=== PATIENT | female | born 1950 | race Caucasian/White ===

== ENCOUNTER 2021-10-27 11:03 | Emergency (ER) | payer MEDICARE, MEDICAID ==
[2021-10-27 11:44] LABS: #Basophils 0.1 thou/uL (0.0-0.2); #Eosinphils 0.1 thou/uL (0.0-0.7); #Lymphocytes 1.3 thou/uL (1.20-3.40); #Monocytes 0.4 thou/uL (0.11-0.59); #Neutrophils 5.1 thou/uL (1.40-6.50); %Basophils 0.8 % (0.0-1.0); %Neutrophils 73.2 % (42.0-75.0); Hemoglobin 13.3 g/dL (12.0-16.0); Mean Corpuscular HGB CONC 33.8 g/dL (32.0-36.0); Mean Corpuscular Hemoglobin 30.3 pg (27.0-31.0); Mean Corpuscular Volume 89.6 fL (78.0-98.0); Mean Platelet Volume 10.2 fL (7.4-10.4); Platelet Count 179 thou/uL (130-400); RBC Distribution Width 11.3 % (11.5-14.5); White Blood Cell (WBC) Count 6.9 thou/uL (4.8-10.8)
[2021-10-27 12:01] LABS: ALT (SGPT) 15 U/L (8-55); AST (SGOT) 20 U/L (5-34); Albumin 4.1 g/dL (3.4-4.8); Alkaline Phosphatase 62 U/L (40-110); Anion Gap 20 mmol/L (10-20); BUN (Urea Nitrogen) 13 mg/dL (9.8-20.1); Bilirubin, Total 0.8 mg/dL (0.2-1.2); Calc. Creatinine Clearance 0 mL/min (70-130); Calcium 9.9 mg/dL (7.8-10.44); Carbon Dioxide 26 mmol/L (23-31); Chloride 90 mmol/L (98-107); Glucose 120 mg/dL (83-110); Magnesium 1.5 mg/dL (1.6-2.6); Potassium 3.1 mmol/L (3.5-5.1); Protein, Total 7.1 g/dL (5.8-8.1); Sodium 133 mmol/L (136-145)
[2021-10-27] MEDS ORDERED: Potassium Chloride 20 MEQ TAB ONE (12:33)
[2021-10-27] MEDS ORDERED: Magnesium 2 GM/50 ML BAG (IN WATER) ONE (12:33)
[2021-10-27] MEDS ORDERED: Sodium Chloride 0.9% 500 ML ONE (12:51)
[2021-10-27] MEDS ORDERED: diphenhydrAMINE 50 MG/ML VIAL ONE (13:01)
[2021-10-27] MEDS ORDERED: Ketorolac Tromethamine 30 MG/ML VIAL ONE (13:01)
[2021-10-27] MEDS ORDERED: Metoclopramide HCl 10 MG/2 ML VIAL ONE (13:01)
== END 2021-10-27 13:42 | disposition home or self-care (01) ==
LOC: MADERS 11:03
DX: R55 Syncope and collapse (principal); S09.90XA Unspecified injury of head, initial encounter; S70.12XA Contusion of left thigh, initial encounter; S90.121A Contusion of right lesser toe(s) without damage to nail, initial encounter; S40.012A Contusion of left shoulder, initial encounter; E87.6 Hypokalemia; E83.42 Hypomagnesemia; I25.2 Old myocardial infarction; E11.9 Type 2 diabetes mellitus without complications; E03.9 Hypothyroidism, unspecified; K21.9 Gastro-esophageal reflux disease without esophagitis; I10 Essential (primary) hypertension; Z79.899 Other long term (current) drug therapy; X58.XXXA Exposure to other specified factors, initial encounter
CPT/HCPCS: 36415; 70450; 71045; 72125; 80053; 83735; 84484; 85025; 96365; 96375; J1200; J1885; J2765; J3475; J7030